=== PATIENT | male | born 2000 | race American Indian/Alaskan Native ===

== ENCOUNTER 2019-07-12 19:30 | Emergency (ER) | payer MEDICAID, OTHER ==
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
== END 2019-07-12 19:47 ==
LOC: DL.ED 19:30
DX: F10.120 Alcohol abuse with intoxication, uncomplicated (principal)
CPT/HCPCS: 99284

== ENCOUNTER 2019-12-12 16:16 | Emergency (ER) | payer OTHER ==
[2019-12-12 16:24] VITALS: BP 140/72; PULSE 75
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
== END 2019-12-12 17:30 | disposition home or self-care (01) ==
LOC: DL.ED 16:16
DX: S05.12XA Contusion of eyeball and orbital tissues, left eye, initial encounter (principal); X58.XXXA Exposure to other specified factors, initial encounter
CPT/HCPCS: 70486; 99283-25

== ENCOUNTER 2021-04-14 14:35 | Emergency (ER) | payer OTHER ==
[2021-04-14] MEDS ORDERED: Lidocaine 1% 30 ML SDV INJECT ONE ×2 (14:36→14:50)
[2021-04-14 14:50] VITALS: BP 113/72; PULSE 107
[2021-04-14 15:32] LABS: ANION GAP 13.8 mEq/L (7-13); CHLORIDE,CL 108 mmol/L (98-107); SODIUM,NA 144 mmol/L (136-145)
== END 2021-04-14 15:45 ==
LOC: DL.ED 14:35
DX: S01.111A Laceration without foreign body of right eyelid and periocular area, initial encounter (principal); F10.129 Alcohol abuse with intoxication, unspecified; W26.8XXA Contact with other sharp object(s), not elsewhere classified, initial encounter
CPT/HCPCS: 12011; 36415; 70450; 72125; 80053; 80307; 83735; 85025; 86140; 99284-25

== ENCOUNTER 2021-12-12 19:56 | Emergency (ER) | payer MEDICAID ==
[2021-12-12] MEDS ORDERED: Lidocaine 1% 10 ML MDV INJECT ONE (20:06)
[2021-12-12 21:39] VITALS: BP 134/71; PULSE 98
== END 2021-12-12 20:54 | disposition home or self-care (01) ==
LOC: DL.ED 19:56
DX: S41.112A Laceration without foreign body of left upper arm, initial encounter (principal); Y04.0XXA Assault by unarmed brawl or fight, initial encounter
CPT/HCPCS: 12002; 73090-LT; 96374; 99282; 99284-25

== ENCOUNTER 2022-03-14 17:44 | Emergency (ER) | payer MEDICAID | END 2022-03-14 21:15 | disposition left against medical advice (07) | LOC: DL.ED 17:44 | DX: Z53.21 Procedure and treatment not carried out due to patient leaving prior to being seen by health care provider (principal) ==

== ENCOUNTER 2022-04-14 16:33 | Emergency (ER) | payer MEDICAID | END 2022-04-14 19:04 | disposition left against medical advice (07) | LOC: DL.ED 16:33 | DX: Z53.21 Procedure and treatment not carried out due to patient leaving prior to being seen by health care provider (principal) ==